=== PATIENT | male | born 2000 | race American Indian/Alaskan Native ===

== ENCOUNTER 2018-12-20 12:17 | Emergency (ER) | payer OTHER ==
[2018-12-20 12:28] VITALS: BP 140/75
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
== END 2018-12-20 15:22 | disposition home or self-care (01) ==
LOC: ED 12:17
DX: S40.811A Abrasion of right upper arm, initial encounter (principal); F17.200 Nicotine dependence, unspecified, uncomplicated; V89.2XXA Person injured in unspecified motor-vehicle accident, traffic, initial encounter; Y93.89 Activity, other specified; Y92.488 Other paved roadways as the place of occurrence of the external cause; Y99.8 Other external cause status
CPT/HCPCS: 99283